=== PATIENT | female | born 1940 | race Caucasian/White ===

== ENCOUNTER 2018-06-17 13:02 | Outpatient (CLI) | payer MEDICARE, BC, SELFPAY ==
--- NOTE | 2018-06-17 12:51 | DI.RAD_ITS ---
SYMPTOM/DIAGNOSIS: DECREASED BREATH SOUNDS LEFT LUNG, DYSPNEA R09.89 PA AND LATERAL CHEST: 06/17/18 The heart is not enlarged. There are minimal radial radiodensities consistent with scarring in the left lung base unchanged from examination of 09/04/2011. Otherwise lungs are clear. No pleural effusion seen. Cardiac size is within normal limits. CONCLUSION: No evidence of acute disease.
== END 2018-06-17 13:22 ==
PROVIDERS: PCP Family Medicine; Visit Provider Family Medicine
DX: R09.89 Other specified symptoms and signs involving the circulatory and respiratory systems (principal); R06.09 Other forms of dyspnea
CPT/HCPCS: 71046

== ENCOUNTER 2019-06-29 07:00 | Outpatient (CLI) | payer MEDICARE, BC, SELFPAY ==
[2019-06-29 12:36] LABS: ALT 23 U/L (14-59); AST 21 U/L (15-37); Alkaline Phosphatase 80 U/L (46-116); Anion Gap 6.9 mmol/L (3-11); BUN 24 mg/dL (7-18); Bilirubin, Total 0.8 mg/dL (0.2-1.0); CO2 30.1 mmol/L (21.0-32.0); CREATININE 0.61 mg/dL (0.55-1.02); Calcium 9.3 mg/dL (8.5-10.1); Chloride 106 mmol/L (98-107); Glucose 91 mg/dL (74-106); Potassium 4.5 mmol/L (3.5-5.1); Sodium 143 mmol/L (136-145); Total Protein 6.6 g/dL (6.4-8.2)
== END 2019-06-29 07:20 ==
PROVIDERS: PCP Family Medicine; Visit Provider Family Medicine
DX: I10 Essential (primary) hypertension (principal)
CPT/HCPCS: 36415; 80053

== ENCOUNTER 2019-08-24 02:25 | Outpatient (CLI) | payer MEDICARE, BC, SELFPAY ==
--- NOTE | 2019-08-24 15:12 | DI.MAMMO_ITS ---
EXAM: MG MAMMO SCREENING CLINICAL HISTORY: SCREENING, Z12.39. TECHNIQUE: Bilateral full field digital CC and MLO mammographic images were obtained with 3D tomosyn thesis and utilizing computer aided detection (CAD). COMPARISON: Available for comparison. FINDINGS: Masses/Architectural Distortion: None seen. Microcalcifications: No suspicious pleomorphic-type are seen. Skin Thickening/Nipple Retraction: None. IMPRESSION: 1. No significant interval change with no specific features of malignancy noted. 2. Unless there is more urgent need, screening mammography is recommended, as per [employer] guidelines. ACR BI-RAD Category- 1 Negative Breast Density - Category A - Almost entirely fatty A negative radiographic report should not delay biopsy if a dominant or clinically suspicious mass is present. Up to ten percent of cancers are not identified on mammography. A negative report may reinforce clinical impression. Adenosis and dense breasts may obscure an underlying neoplasm. False positive reports average 6 to 10%. Patient will receive a letter notifying them of these results.
== END 2019-08-24 02:45 ==
PROVIDERS: PCP Family Medicine; Visit Provider Family Medicine
DX: Z12.31 Encounter for screening mammogram for malignant neoplasm of breast (principal)
CPT/HCPCS: 77063; 77067

== ENCOUNTER 2021-05-27 01:57 | Outpatient (CLI) | payer MEDICARE, SELFPAY ==
[2021-05-27 13:17] LABS: ALT 25 U/L (14-59); AST 17 U/L (15-37); Albumin 3.8 g/dL (3.4-5.0); Alkaline Phosphatase 82 U/L (46-116); Anion Gap 9.6 mmol/L (3-11); BUN 20 mg/dL (7-18); Bilirubin, Total 0.8 mg/dL (0.2-1.0); CO2 28.4 mmol/L (21.0-32.0); CREATININE 0.6 mg/dL (0.55-1.02); Calcium 8.7 mg/dL (8.5-10.1); Chloride 105 mmol/L (98-107); Glucose 93 mg/dL (74-106); Potassium 4.6 mmol/L (3.5-5.1); Sodium 143 mmol/L (136-145); Total Protein 6.4 g/dL (6.4-8.2)
== END 2021-05-27 01:58 | disposition home or self-care (01) ==
LOC: LOS 01:57
PROVIDERS: PCP Family Medicine; Visit Provider Family Medicine
DX: I10 Essential (primary) hypertension (principal)
CPT/HCPCS: 36415; 80053

== ENCOUNTER 2022-06-27 18:55 | Emergency (ER) | payer MEDICARE, SELFPAY ==
[2022-06-27 18:58] VITALS: BP 153/61; PULSE 66; RESP 16; TEMP 35.9; O2SAT 96
--- NOTE | 2022-06-27 19:00 | DI.CT_ITS ---
Exam(s) CT HEAD CERVICAL SPINE WO EXAM: CT HEAD CERVICAL SPINE WO CLINICAL HISTORY: fall/injury. TECHNIQUE: Imaging Protocol: Axial computed tomography images with coronal and sagittal reformatted images were created and reviewed COMPARISON: No exams were available for comparison FINDINGS: CT Head: Ventricles and Extra axial spaces: Normal in size and morphology for the patient's age. Hemorrhage: None. Cerebral parenchyma: No acute territorial infarct. Midline shift: None. Brainstem/Cerebellum: Normal. Calvarium: Normal. Visualized Paranasal sinuses/Mastoids: Clear. Soft Tissues: There is mild soft tissue swelling of the small right forehead. CT Cervical Spine: Bones: No acute fracture or subluxation. There are degenerative changes in the cervical spine. Soft Tissues: Unremarkable. Lung Apices: Clear. IMPRESSION: 1. No acute intracranial process. 2. Soft tissue swelling over the right frontal bone. 3. No acute fracture or subluxation in the cervical spine. RADIATION DOSE DELIVERED: 1,433.19mGy.cm Total DLP DATA REPOSITORY: All CT scans at this facility are submitted to the National Radiology Data Registry (NRDR) Dose Index Registry (DIR) with the [employer] (A[employer]). RADIATION OPTIMIZATION: All CT scans at this facility use at least one of these dose optimization te chniques: automated exposure control; mA and/or kV adjustment per patient size (includes targeted exa ms where dose is matched to clinical indication); or iterative reconstruction.
--- NOTE | 2022-06-27 19:11 | W.ED.GENAD ---
Discharge Plan Disposition Patient Disposition: Home Condition: Stable Discharge Details Clinical Impression: Head injury, Facial laceration Primary Care Provider: Analia Allen ED Provider: Manish Jacobo Home Meds and New Rx's Prescriptions: Continued Shingrix (PF) 50 mcg/0.5 mL suspension for reconstitution 0.5 ml IM ONCE Qty: 1 1RF Rx Instructions: as a single dose/repeat in 2 to 6 months naproxen sodium [Aleve] 220 mg tablet 220 mg PO DAILY citalopram 20 mg tablet 20 mg PO DAILY Qty: 90 3RF timolol maleate 0.5 % drops 1 drp ophthalmic (eye) DAILY Lumigan 5 ML drops 1 drp OU HS lisinopril [Zestril] 10 mg tablet 10 mg PO DAILY Qty: 90 3RF Discharge Instructions Instructions: Facial Laceration (ED), Head Injury (ED) Additional Instructions: Facial laceration was repaired without any difficulty. CT imaging of your head and C-spine did not reveal any obvious emergent process. Please keep the wound clean and dry, change antibiotic dressing daily. Sutures should be removed in 5 days. Please watch for new or worsening symptoms and return immediately to the ER. Lastly, please contact your primary care provider on Thursday to discuss your ER visit and need for outpatient reevaluation. Medical Decision Making This is an 82-year-old female who is not anticoagulated, reports having had [place] mechanical trip [place] the post office around [place] today sustaining injury to the right side of her head. She denies LOC, headache, neck pain, visual changes, nausea or vomiting, numbness, tingling, weakness. Patient states that just prior to arrival she was using a wet cloth to clean the laceration and began bleeding, unable to control the bleeding and this prompted her ER visit. Clinically she appears well, nontoxic, neurologically intact. Tetanus status reviewed and needs to be updated tonight. Laceration will require repair. Plan to obtain CT imaging of her head and C-spine. Laceration repaired without difficulty, bleeding controlled. CT imaging of head and C-spine unremarkable for acute process. Patient remains neurologically intact. No obvious distracting injuries. Standard discharge and return precautions were provided. Patient understands, is agreeable to this plan, and has no additional questions or concerns upon discharge. This documentation was generated using [employer] system, please disregard any oddities of phrase or misspellings. Medical Records Medical records reviewed: Yes I reviewed the patient's medical records. Imaging Data Radiologic Study: Attestation: I personally reviewed and interpreted this imaging study as follows: Imaging: CT Scan Radiologist's impression: PROCEDURE INFORMATION: Exam: CT Head Without Contrast Exam date and time: 06/27/2022 7:19 PM Age: 82 years old Clinical indication: Other: Fall injury; Other: Fall, injury TECHNIQUE: Imaging protocol: Computed tomography of the head without contrast. COMPARISON: No relevant prior studies available. FINDINGS: Brain: Slight prominence of cerebral sulci reflects mild volume loss. Posterior fossa contents including brainstem and cerebellum are unremarkable and no significant foci of abnormal increased or decreased attenuation are seen within the brain parenchyma. No acute intracranial hemorrhage is detected. Cerebral ventricles: Ventricular and cisternal spaces are normal in size and configuration and there is no midline shift or hydrocephalus. Paranasal sinuses: Grossly clear throughout. Mastoid air cells: Grossly clear bilaterally. Orbital cavities: Both globes appear intact and no orbital lesions are detected. Bones/joints: The bony calvarium and skull base are intact and no fractures or other acute osseous lesions are detected. Soft tissues: Focal ecchymosis/edema involves the forehead centrally and to the right of midline with no subjacent fracture detected. IMPRESSION: 1. Mild cerebral atrophy with no evidence of acute infarct, recent hemorrhage or hydrocephalus. No acute intracranial process is detected.2. Focal ecchymosis/edema involves the forehead centrally and to the right of midline with no subjacent fracture detected. PROCEDURE INFORMATION: Exam: CT Cervical Spine Without Contrast Exam date and time: 06/27/2022 7:19 PM Age: 82 years old Clinical indication: Other: Fall injury; Other: Fall, injury TECHNIQUE: Imaging protocol: Computed tomography of the cervical spine without contrast. COMPARISON: No relevant prior studies available. FINDINGS: Bones/joints: There is arthrosis involving the anterior atlantodental interval with loss of joint space and marginal osteophyte formation and the odontoid process is grossly intact. There are grade 1 anterolistheses of C3 upon C4 and C7 upon T1 and there is gross preservation of vertebral body height throughout cervical levels with no vertebral body fractures or other significant subluxations detected. Changes of facet arthropathy are most advanced on the left side at C1-C2 and on the right side throughout mid to lower cervical levels with probable ankylosis of the right-sided facet joint noted at C4-C5. No acute fractures are detected involving the posterior elements of the cervical spine. Discs/Spinal canal/Neural foramina: Loss of disc space height with posterior osteocartilaginous ridging is most significant at C5-C6 and C6-C7 resulting in canal stenosis and suspected mass-effect upon the ventral cord which could be better evaluated with MRI. Uncovertebral and facet changes produce right foraminal distortions/narrowings at mid to lower cervical levels. Lungs: No pneumothorax or consolidation detected at the lung apices. Soft tissues: Unremarkable. IMPRESSION: Chronic cervical spondylosis with central canal and foraminal narrowing as above. No acute cervical fractures are detected. Sign Out No HPI General Mode of arrival: ambulatory. Date/Time Provider Initiated Documentation: 06/27/22 18:56. Limitations to Documentation: no limitations. Information obtained by: patient. History of Present Illness 82 year old F presents to the emergency department with the chief complaint of Fall, head injury, described as mild, with intensity rated at 2. Quality is described as aching, and is localized to the face. Patient reports no radiation. Patient started experiencing this hour(s) (7) and it has been constant. No relieving factors improve symptom(s), No exacerbating factors reported . Patient notes no other symptoms.. Patient did receive the following treatments prior to arrival, none Related Data Home Medications Medication Instructions Recorded Confirmed bimatoprost 0.01 % eye drops 1 drp OU HS 08/09/15 09/23/21 (Gerardoigan) varicella-zoster glycoE vacc-AS01B 0.5 ml IM ONCE #1 ea 06/29/19 09/23/21 adj(PF) 50 mcg/0.5 mL IM susp, kit (Shingrix (PF)) citalopram 20 mg tablet 20 mg PO DAILY #90 tabs 09/23/21 naproxen sodium 220 mg tablet 220 mg PO DAILY 09/23/21 09/23/21 (Aleve) timolol maleate 0.5 % eye drops 1 drp ophthalmic (eye) DAILY 09/23/21 lisinopril 10 mg tablet (Zestril) 10 mg PO DAILY #90 tab-caps 04/14/22 Previous Rx's Medication Instructions Recorded varicella-zoster glycoE vacc-AS01B 0.5 ml IM ONCE #1 ea 06/29/19 adj(PF) 50 mcg/0.5 mL IM susp, kit (Shingrix (PF)) citalopram 20 mg tablet 20 mg PO DAILY #90 tabs 09/23/21 lisinopril 10 mg tablet (Zestril) 10 mg PO DAILY #90 tab-caps 04/14/22 Allergies Allergy/AdvReac Type Severity Reaction Status Date / Time aspirin Allergy Unknown Unverified 05/01/22 11:07 cefazolin Allergy Unknown Unverified 05/01/22 11:07 General Stated Complaint: Laceration VIOLETTA: 3 Review of Systems Constitutional Constitutional: Denies headache(s) and Denies weakness Eyes Eyes: Denies change in vision ENT Ears, Nose, Mouth, and Throat: Denies headache(s) and Denies neck pain Cardiovascular Cardiovascular: Denies chest pain and Denies dyspnea Respiratory Respiratory: Denies dyspnea Gastrointestinal Gastrointestinal: Denies nausea and Denies vomiting Musculoskeletal Musculoskeletal: Denies back pain, Denies neck pain, Denies numbness and Denies tingling Neurologic Neurologic: Denies headache(s), Denies numbness, Denies tingling and Denies weakness Hematologic/Lymphatic Hematologic/Lymphatic: Denies easy bleeding and Denies easy bruising PFSH All Active Problems (Updated 06/27/22 @ 21:01 by FRANK Patel) Head injury (Acute) Facial laceration (Acute) Basal cell carcinoma of nose (Acute) Remote, followed by [facility] dermatology Glaucoma (Chronic) Depression (Chronic) Sensorineural hearing loss, bilateral (Acute 10/09/16) Osteoarthritis (Acute) knees, trunk, ankle 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 (Acute) Essential hypertension (Acute 05/11/13) 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/16) Surgical History Appendectomy B/L TKA (04/08/14) [facility] [place] Cholecystectomy CYSTOCELE REPAIR (~2009) Extraction of cataract (~2008) B/L Hysterectomy, Laproscopic (~2009) Status post appendectomy Status post cholecystectomy Status post laparoscopic hysterectomy 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 Paternal Grandfather , AGE 80 No problems noted. Maternal Grandmother , age 62 Hypertension Heart disease Paternal Grandmother , age 40 - accident No problems noted. Social History Smoking/Tobacco Use Status: Former Tobacco Use tobacco type: cigarettes Quit Date: 07/20/89 Tobacco: How many years used: 30 Second Hand Exposure: Yes Smoking risk assessment performed?: Yes Alcohol Intake: current Alcohol Intake frequency: a few times a month Alcohol type: wine Drug use: Never Substance use type: does not use Caregiver/Support person: No Household members: spouse and children Housing: house Communication Needs: None Do you need help understanding health information?: Rarely Pets and animals: Yes Pets and animals: cat(s) and dog(s) Sexually active: No Do you think of yourself as: straight/heterosexual What is your relationship status?: How often do you talk on the phone with friends or family?: twice per week How often do you get together with friends or relatives?: once per week How often do you attend moravian or anglican services?: decline to answer Do you belong to any clubs or organized social groups?: yes Panel score (0-1 are the most socially isolated patients): 3 What type of physical activity do you participate in: other Details: [employer] Duration: 45-60 minutes/day Frequency: 1-2 times per week Stephanie/Samaritan: None Special stephanie needs: No Seatbelt use: always Drive intox or ride w/intox oil transport driver: No Do you feel safe at home: Yes Do you feel safe in your relationship?: Yes Exam Const General: cooperative, healthy appearing, comfortable and no acute distress Orientation: alert, awake and oriented x3 [facility] Head images: 1. 3 cm laceration with active oozing but no arterial bleed. Located around the laceration there is mild swelling, ecchymosis. No crepitus. Neuro, vascular, tendon intact. Ears: external ears normal, TM's normal bilaterally and EAC's normal Nose image: 1. Abrasion Mouth: moist mucous membranes Teeth and gingiva: dentition normal Throat: posterior oropharynx normal Eyes Alignment and Position: alignment normal Periorbital: periorbital findings abnormal right periorbital ecchymosis Conjunctivae: conjunctivae normal Sclera: sclerae normal Cornea: corneas normal Pupils: PERRL EOM: EOM intact bilaterally Direct ophthalmoscopy: normal light reflex Neck Neck: normal visual inspection, full ROM, trachea midline, supple and nontender Resp Effort & Inspection: normal respiratory effort and able to speak in complete sentences Auscultation: clear to auscultation bilaterally Cardio Rate: regular rate Rhythm: regular rhythm GI Palpation: soft and nontender Back/Spine/Pelvis Back: No back tenderness Skin General skin exam: no rashes or lesions noted Neuro General: patient alert, patient awake, patient oriented x3, moves all extremities and no focal motor deficits Cranial Nerves: CN's II-XI intact bilaterally Cognition: normal cognition Speech: speech normal Gait: normal gait Motor: muscle tone normal throughout Sensory Exam: no sensory deficits noted Extrem General: normal to inspection, full ROM and capillary refill normal Psych Appearance: grossly normal Mental Status: mental status grossly normal Course Vital Signs Vital signs: Vital Signs Temperature 35.9 C L 06/27/22 18:58 Pulse 66 06/27/22 18:58 Respiratory Rate 16 06/27/22 18:58 Blood Pressure 153/61 H 06/27/22 18:58 Pulse Oximetry 96 06/27/22 18:58 Temperature 35.9 C L 06/27/22 18:58 Pulse 66 06/27/22 18:58 Respiratory Rate 16 06/27/22 18:58 Respiratory Effort 06/27/22 19:05 Blood Pressure 153/61 H 06/27/22 18:58 Pulse Oximetry 96 06/27/22 18:58 Oxygen Delivery Method Room Air 06/27/22 18:58 Oxygen Flow Rate 0 06/27/22 18:58 Pain Level 0 06/27/22 18:58 Procedures Laceration Laceration 1: Site: face Side (If applicable): right Size (cm): 3 Description: linear and clean Depth: simple, single layer Local Anesthetic: Lidocaine 2% and with Epi Amount of anesthesia used (mL): 4 Pre-repair: wound explored, irrigated extensively and deep structures intact Skin layer closed with: nylon Size (cm): 6-0 Number of sutures: 7 Technique: simple, interrupted
[2022-06-27] MEDS: Lidocaine/Epinephri/Tetracaine Topical Gel 3 ML TP (19:14)
--- NOTE | 2022-06-27 20:31 | DI.VRAD_ITS ---
PROCEDURE INFORMATION: Exam: CT Head Without Contrast Exam date and time: 06/27/2022 7:19 PM Age: 82 years old Clinical indication: Other: Fall injury; Other: Fall, injury TECHNIQUE: Imaging protocol: Computed tomography of the head without contrast. COMPARISON: No relevant prior studies available. FINDINGS: Brain: Slight prominence of cerebral sulci reflects mild volume loss. Posterior fossa contents including brainstem and cerebellum are unremarkable and no significant foci of abnormal increased or decreased attenuation are seen within the brain parenchyma. No acute intracranial hemorrhage is detected. Cerebral ventricles: Ventricular and cisternal spaces are normal in size and configuration and there is no midline shift or hydrocephalus. Paranasal sinuses: Grossly clear throughout. Mastoid air cells: Grossly clear bilaterally. Orbital cavities: Both globes appear intact and no orbital lesions are detected. Bones/joints: The bony calvarium and skull base are intact and no fractures or other acute osseous lesions are detected. Soft tissues: Focal ecchymosis/edema involves the forehead centrally and to the right of midline with no subjacent fracture detected. IMPRESSION: 1. Mild cerebral atrophy with no evidence of acute infarct, recent hemorrhage or hydrocephalus. No acute intracranial process is detected. 2. Focal ecchymosis/edema involves the forehead centrally and to the right of midline with no subjacent fracture detected. PROCEDURE INFORMATION: Exam: CT Cervical Spine Without Contrast Exam date and time: 06/27/2022 7:19 PM Age: 82 years old Clinical indication: Other: Fall injury; Other: Fall, injury TECHNIQUE: Imaging protocol: Computed tomography of the cervical spine without contrast. COMPARISON: No relevant prior studies available. FINDINGS: Bones/joints: There is arthrosis involving the anterior atlantodental interval with loss of joint space and marginal osteophyte formation and the odontoid process is grossly intact. There are grade 1 anterolistheses of C3 upon C4 and C7 upon T1 and there is gross preservation of vertebral body height throughout cervical levels with no vertebral body fractures or other significant subluxations detected. Changes of facet arthropathy are most advanced on the left side at C1-C2 and on the right side throughout mid to lower cervical levels with probable ankylosis of the right-sided facet joint noted at C4-C5. No acute fractures are detected involving the posterior elements of the cervical spine. Discs/Spinal canal/Neural foramina: Loss of disc space height with posterior osteocartilaginous ridging is most significant at C5-C6 and C6-C7 resulting in canal stenosis and suspected mass-effect upon the ventral cord which could be better evaluated with MRI. Uncovertebral and facet changes produce right foraminal distortions/narrowings at mid to lower cervical levels. Lungs: No pneumothorax or consolidation detected at the lung apices. Soft tissues: Unremarkable. IMPRESSION: Chronic cervical spondylosis with central canal and foraminal narrowing as above. No acute cervical fractures are detected. Dictated and Authenticated by: George Fink MD. Ordering:RACHEL Hammond MD
== END 2022-06-27 21:33 | disposition home or self-care (01) ==
LOC: ER 21:47
PROVIDERS: Emergency Provider Physician Assistant; PCP Family Medicine
DX: S01.81XA Laceration without foreign body of other part of head, initial encounter (principal); Z23 Encounter for immunization; W01.0XXA Fall on same level from slipping, tripping and stumbling without subsequent striking against object, initial encounter; Y92.89 Other specified places as the place of occurrence of the external cause
CPT/HCPCS: 12013; 90471; 99284; 70450; 72125; 99282

== ENCOUNTER → 2022-07-02 13:33 | Outpatient (CLI) | payer MEDICARE, SELFPAY ==
--- NOTE | 2022-07-02 15:00 | DI.RAD_ITS ---
Exam(s) XR HAND RT COMPLETE EXAM: XR HAND RT COMPLETE CLINICAL HISTORY: fell 5 days ago; pain at base of 5th finger, rt hand pain, M79.641. TECHNIQUE: 2D digital imaging was performed of the right hand. Three images were obtained. AP, late ral and oblique views were obtained. COMPARISON: No exams were available for comparison FINDINGS: BONES: On the lateral view there appears to be a fracture through the base of the 5th metacarpal bone . No bony destructive lesion is seen. JOINTS: No dislocation present. Marked degenerative changes are seen in the hand and wrist. The find ings are most marked at the 1st CMC joint. SOFT TISSUE: Normal. IMPRESSION: Findings suspicious for fracture through the base of the 5th metacarpal bone. A CT scan may be consi dered for further evaluation. DATA REPOSITORY: RADIATION DOSE DELIVERED:
== END ==
PROVIDERS: PCP Family Medicine; Visit Provider Family Medicine
DX: M79.641 Pain in right hand (principal); R93.89 Abnormal findings on diagnostic imaging of other specified body structures
CPT/HCPCS: 73130

== ENCOUNTER 2022-07-09 14:36 | Outpatient (CLI) | payer MEDICARE, SELFPAY ==
--- NOTE | 2022-07-09 13:45 | DI.RAD_ITS ---
Exam(s) XR HAND RT LIMITED EXAM: XR HAND RT LIMITED CLINICAL HISTORY: right hand pain. TECHNIQUE: 2D digital imaging was performed. COMPARISON: CR XR HAND RT COMPLETE from 07/02/2022 FINDINGS: Two views: No evidence of acute fracture. Advanced degenerative changes in the 1st carpometacarpal joint are ag ain evident. The previously described fracture at the base of the 5th metacarpal is barely visible. No new additional fractures evident. No radiopaque foreign body. IMPRESSION: DATA REPOSITORY: RADIATION DOSE DELIVERED:
== END 2022-07-09 14:37 | disposition home or self-care (01) ==
LOC: DIORS 14:37
PROVIDERS: PCP Family Medicine; Referring Provider Family Medicine; Visit Provider Student in an Organized Health Care Education/Training Program
DX: M79.641 Pain in right hand (principal); S62.316A Displaced fracture of base of fifth metacarpal bone, right hand, initial encounter for closed fracture; W19.XXXA Unspecified fall, initial encounter
CPT/HCPCS: 99203; 99213; 73120

== ENCOUNTER 2022-08-13 11:09 | Outpatient (CLI) | payer MEDICARE, SELFPAY ==
--- NOTE | 2022-08-13 10:45 | DI.RAD_ITS ---
Exam(s) XR HAND RT COMPLETE EXAM: XR HAND RT COMPLETE CLINICAL HISTORY: RIGHT HAND F/U. TECHNIQUE: 2D digital imaging was performed. Three views. COMPARISON: CR XR HAND RT COMPLETE from 07/02/2022 CR XR HAND RT LIMITED from 07/09/2022 FINDINGS: BONES: The fracture at the base of the 5th metacarpal is not well seen due to bony overlap. No acute fracture is present. No bony destructive lesion is seen. JOINTS: No dislocation present. There are severe degenerative changes at the 1st carpal metacarpal joint with a [id number] appearance and prominent periarticular spurring. There is some lateral sub luxation of the base of the 1st metacarpal with respect to the trapezium. There are several adjacent bony densities. There is extension deformity at the 1st metacarpophalangeal joint. Negative ulnar variance degenerative changes at the distal radial ulnar joint are again noted. SOFT TISSUE: Normal. IMPRESSION: Stable appearance of 5th metacarpal fracture. Stable severe degenerative changes 1st carpal metacarp al joint. DATA REPOSITORY: RADIATION DOSE DELIVERED:
== END 2022-08-13 11:10 | disposition home or self-care (01) ==
LOC: DIORS 11:10
PROVIDERS: PCP Family Medicine; Referring Provider Family Medicine; Visit Provider Student in an Organized Health Care Education/Training Program
DX: S62.301D Unspecified fracture of second metacarpal bone, left hand, subsequent encounter for fracture with routine healing (principal); X58.XXXD Exposure to other specified factors, subsequent encounter
CPT/HCPCS: 20610; 99213; 73130

== ENCOUNTER 2022-10-03 01:23 | Outpatient (CLI) | payer MEDICARE, SELFPAY ==
[2022-10-03 12:36] LABS: Abs Immature Grans 0.01 10^3/uL (0.0-0.06); Absolute Basophil Count 0.05 10^3/uL (0.0-0.2); Absolute Eosinophil Count 0.13 10^3/uL (0.0-0.7); Absolute Monocyte Count 0.36 10^3/uL (0.1-0.8); Absolute Neutrophil Count 3.03 10^3/uL (1.2-6.7); Eosinophils % 2.6; HCT 46.1 % (36.0-46.0); HGB 14.9 g/dL (11.2-15.7); Immature Grans % 0.2; Lymphocytes % 29.5; MCHC 32.3 % (32.0-36.0); MCV 84 fL (80-95); MPV 10.9 fL (8.0-11.0); Monocytes % 7.1; Neutrophils % 59.6; Platelet Count 276 10^3/uL (130-400); RBC 5.51 10^6/uL (3.93-5.22); RDW 15.1 % (11.7-14.6); RDW-SD 45.8 fL; WBC 5.08 10^3/uL (4.4-10.8)
[2022-10-03 13:32] LABS: Anion Gap 7.3 mmol/L (3-11); BUN 18 mg/dL (7-18); CO2 28.7 mmol/L (21.0-32.0); CREATININE 0.6 mg/dL (0.55-1.02); Calcium 9.2 mg/dL (8.5-10.1); Calculated LDL 113 mg/dL (<100); Chloride 106 mmol/L (98-107); Cholesterol 207 mg/dL (<200); Estimated GFR 90.68 (mL/min/1.73m2); Glucose 111 mg/dL (74-106); HDL Cholesterol 82 mg/dL (40-60); Potassium 4.6 mmol/L (3.5-5.1); Sodium 142 mmol/L (136-145); TSH (W/Ref FT4) 1.43 uIU/mL (0.36-3.74); Triglyceride 61 mg/dL (<150); Vitamin B12 535 pg/mL (193-986)
== END 2022-10-03 01:24 | disposition home or self-care (01) ==
LOC: LOS 01:23
PROVIDERS: PCP Family Medicine; Visit Provider Family Medicine
DX: I10 Essential (primary) hypertension (principal); R53.83 Other fatigue; R26.89 Other abnormalities of gait and mobility; Z91.81 History of falling; R73.09 Other abnormal glucose
CPT/HCPCS: 36415; 80048; 80061; 82607; 84443; 85025

== ENCOUNTER 2022-11-27 01:19 | Outpatient (CLI) | payer MEDICARE, SELFPAY ==
--- NOTE | 2022-11-27 07:15 | DI.DEXA_ITS ---
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 COMPARISON: Prior DEXA scan November 2004 FINDINGS: Performed on a HoloInToTally unit. Lateral image: No compression fracture evident. Lumbar Spine total T-score: 0.3. Prior reading in 2004 was 1.0 Hip total T-score:-2.3. Prior reading in 2004 was -0.6 Independent reading at the level of the femoral neck yields T-score of -2.2 Forearm total T-score: -3.3 IMPRESSION: Bone mineral density measures in the osteoporosis range, this due to the forearm readings. Fracture risk is high. Note: Any spine fracture indicates 5x risk for subsequent spine fracture and 2x risk for subsequent h ip fracture. World Health Organization criteria for BMD interpretation classify patients: Normal...... T- Score at or above -1.0 Osteopenic... T- Score between -1.0 and -2.5 Osteoporosis... T-Score at or below -2.5
--- NOTE | 2022-11-27 10:45 | DI.US_ITS ---
APPROVED REPORT EXAM: Comprehensive 2D, Doppler, and color-flow Echocardiogram Other Information Study Quality: Adequate Conclusion Normal left ventricular wall thickness and chamber size. Ejection fraction is 55%. Wall motion is n ormal Normal right ventricular size and systolic function Both atria are normal in size Aortic valve is mildly sclerotic and trileaflet with trace regurgitation Normal mitral valve with moderate regurgitation Normal tricuspid valve with mild regurgitation. Estimated right ventricular systolic pressure is 30 mmHg Wall motion Left Ventricle The left ventricle is normal size. The left ventricular systolic function is normal. The left ventric ular ejection fraction is within the normal range. There is normal left ventricular wall thickness. T here is normal LV segmental wall motion. There is no ventricular septal defect visualized. LVEF is 55 %. Right Ventricle The right ventricle is normal size. The right ventricular systolic function is normal. The RVSP is 30 .4 mmHg. Atria The left atrium size is normal. The right atrium size is normal. The interatrial septum is intact wit h no evidence for an atrial septal defect. Aortic Valve The aortic valve is mildly sclerotic Aortic valve is trileaflet. There is no aortic valvular stenosis . Trace aortic regurgitation. Mitral Valve The mitral valve is normal in structure. No evidence of mitral valve stenosis. Moderate mitral regurg itation. Tricuspid Valve The tricuspid valve is normal in structure. There is no tricuspid valve stenosis. Mild tricuspid regu rgitation. Pulmonic Valve The pulmonary valve is normal in structure. There is no pulmonic valvular stenosis. Trace pulmonic re gurgitation. Great Vessels The aortic root is normal in size. The ascending aorta is normal in size. Aortic arch is not well vi sualized. IVC is normal in size and collapses >50% with inspiration. Pericardium There is no pericardial effusion. 2D Dimensions IVSD d PLAX 0.75 cm F: 0.6-1.0 LV Vol A2C d MOD 117.7 mL LVPW d PLAX 0.73 cm F: 0.6 - 1.0 LV Vol A4C d MOD 89.9 mL LVID d PLAX 4.56 cm F: 3.8 - 5.2 LA vol/ BSA A4C s A-L 20.5 mL/m2 LVDs 3.40 cm F: 2.2 - 3.5 LA Area A4C s MOD 13.45 cm2 Ao Root d 2.99 cm F: 2.7 - 3.3 LV EF A4C MOD 48.3 % Ao Asc Diam d 2.93 cm F: 2.3 - 3.1 LV EF A2C MOD 46.9 % LV EF Teichholz 49.3 % LV EF Biplane MOD 45.6 % LVEF (Brock's) 45.57 % F: 54 - 74 SV 47.23 mL LV Volume 77.73 mL F: 46 - 106 SV Index 23.61 mL/m2 LV Volume Index 38.86 mL/m2 F: 29 - 61 LV Vol Biplane MOD 103.6 mL FS 24.85 % M-Mode TAPSE 2.34 cm (M/F) >1.7 LV Diastology MV E' medial 0.084 (>0.07 m/s) E/A Ratio 0.8 LV E/e MED 6.95 (<14) MV E Vmax 0.59 (0.4-1.3 m/s) MV E' lateral 0.072 (>0.1 m/s) MV A Vmax 0.70 (0.4-1.3 m/s) LV E/e LAT 8.10 (<14) MV E/A Ratio 0.83 MV E/E' medial 6.96 MV E/E' lateral 8.14 Aortic Valve LVOT Area 3.19 cm2 AoV Area Vmax 2.49 cm2 LVOT Vmax 0.87 m/s AoV Area/ BSA (Vmax) 1.25 cm2/m2 LVOT Mean Mikal. 0.58 m/s OMID Mean Mikal. 2.51 cm2 LVOT Peak Grad 3.0 mmHg OMID Mean Mikal. Index 1.25 cm2/m2 LVOT Mean Grad 1.6 mmHg LVOT VTI 0.187 m LVOT Diam s 2.00 cm AoV Vmax 1.12 m/s Velocity Ratio 0.78 AoV Mean Mikal. 0.74 m/s AoV Peak Grad 5.0 mmHg LVOT SV 59.81 mL AoV Mean Grad 2.6 mmHg AoV VTI 0.259 m AoV Area VTI 2.31 cm2 AoV Area/ BSA (VTI) 1.16 cm/m2 Mitral Valve MV DT 206 (160-240 msec) MV PHT 60 msec MV Area PHT 3.69 cm2 Pulmonary Valve PV Vmax 0.80 (0.5-1.5 m/s) RVOT Peak Gr. 0.96 mmHg PV Peak Grad 2.6 mmHg RVOT Mean Gr. 0.55 mmHg PV Mean Grad 1.5 mmHg RVOT VTI 0.121 m PV VTI 0.162 m RVOT Vmax 0.49 m/s Tricuspid Valve TR Peak Grad 27.3 mmHg TR Vmax 2.62 m/s RA Pressure 3.00 mmHg RVSP (TR) 30.4 mmHg
== END 2022-11-27 01:39 ==
LOC: DI 01:19
PROVIDERS: PCP Family Medicine; Visit Provider Family Medicine
DX: R06.09 Other forms of dyspnea; N95.9 Unspecified menopausal and perimenopausal disorder; M81.0 Age-related osteoporosis without current pathological fracture
CPT/HCPCS: 77080; 93306

== ENCOUNTER 2023-03-25 13:35 | Outpatient (REF) | payer MEDICARE, SELFPAY ==
[2023-03-25 21:10] LABS: Bilirubin Negative (Negative); Blood Trace-lysed (Negative); Clarity Sl Cloudy (Clear); Glucose Negative (Negative); Ketones Negative (Negative); Leukocyte Esterase Negative (Negative); Nitrite Positive (Negative); Urobilinogen 0.2 mg/dL (Up to 0.2); pH 5.5 (5-8)
[2023-03-25 21:25] LABS: Bacteria Many HPF (Negative); Epithelial Cells Many HPF (Negative)
[2023-03-25 21:26] LABS: C & S Indicated? No/Sq. Contamination; Crystals Negative HPF (Negative); Mucus Negative (Negative)
== END 2023-03-25 13:36 | disposition home or self-care (01) ==
LOC: LBN 13:35
PROVIDERS: PCP Family Medicine; Visit Provider Family Medicine
DX: R31.9 Hematuria, unspecified (principal)
CPT/HCPCS: 81003; 81015

== ENCOUNTER 2023-11-13 01:12 | Outpatient (CLI) | payer MEDICARE, SELFPAY ==
[2023-11-13 11:52] LABS: Anion Gap 10.6 mmol/L (3-11); BUN 26 mg/dL (7-18); CO2 26.4 mmol/L (21.0-32.0); CREATININE 0.6 mg/dL (0.55-1.02); Calcium 9.1 mg/dL (8.5-10.1); Chloride 106 mmol/L (98-107); Estimated GFR 90.12 (mL/min/1.73m2); Glucose 97 mg/dL (74-106); Potassium 4.7 mmol/L (3.5-5.1); Sodium 143 mmol/L (136-145)
== END 2023-11-13 01:13 | disposition home or self-care (01) ==
LOC: LBO 01:13
PROVIDERS: PCP Family Medicine; Visit Provider Family Medicine
DX: I10 Essential (primary) hypertension (principal)
CPT/HCPCS: 36415; 80048

== ENCOUNTER 2024-10-19 02:51 | Outpatient (CLI) | payer MEDICARE, SELFPAY ==
[2024-10-19 11:21] LABS: Abs Immature Grans 0.01 10^3/uL (0.0-0.06); Absolute Basophil Count 0.04 10^3/uL (0.0-0.2); Absolute Eosinophil Count 0.13 10^3/uL (0.0-0.7); Absolute Lymphocyte Count 1.65 10^3/uL (1.2-3.4); Absolute Monocyte Count 0.42 10^3/uL (0.1-0.8); Absolute Neutrophil Count 4.01 10^3/uL (1.2-6.7); Basophils % 0.6 %; Eosinophils % 2.1 %; HCT 42.8 % (36.0-46.0); HGB 14.3 g/dL (11.2-15.7); Immature Grans % 0.2 %; Lymphocytes % 26.4 %; MCH 28.1 pg (27.0-33.0); MCHC 33.4 % (32.0-36.0); MCV 84 fL (80-95); MPV 10.7 fL (8.0-11.0); Monocytes % 6.7 %; Platelet Count 220 10^3/uL (130-400); RBC 5.09 10^6/uL (3.93-5.22); RDW-SD 45.9 fL; WBC 6.26 10^3/uL (4.4-10.8)
[2024-10-19 12:23] LABS: Anion Gap 8.9 mmol/L (3-11); BUN 21 mg/dL (7-18); CO2 29.1 mmol/L (21.0-32.0); CREATININE 0.6 mg/dL (0.55-1.02); Calcium 9.7 mg/dL (8.5-10.1); Chloride 106 mmol/L (98-107); Estimated GFR 89.56 (mL/min/1.73m2); Glucose 89 mg/dL (74-106); Potassium 4.5 mmol/L (3.5-5.1); Sodium 144 mmol/L (136-145); TSH (W/Ref FT4) 1.47 uIU/mL (0.36-3.74); Vitamin B12 376 pg/mL (193-986)
== END 2024-10-19 02:52 | disposition home or self-care (01) ==
LOC: LBO 02:51
PROVIDERS: PCP Family Medicine; Visit Provider Family Medicine
DX: I10 Essential (primary) hypertension (principal); R53.83 Other fatigue; R26.89 Other abnormalities of gait and mobility; E03.9 Hypothyroidism, unspecified
CPT/HCPCS: 36415; 80048; 82607; 84443; 85025